=== PATIENT | male | born 1935 | race Caucasian/White ===

== ENCOUNTER 2016-11-25 06:38 | Inpatient (IN) | payer OTHER, MEDICARE ==
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
--- NOTE | 2016-11-25 07:50 | XR ---
EXAMINATION TYPE: XR chest 2V DATE OF EXAM: 11/25/2016 HISTORY: Chest Pain. REFERENCE: Previous study dated 04/01/2015. FINDINGS: The lungs are clear. Pleural space are clear. Heart size is upper limits of normal. IMPRESSION: BORDERLINE CARDIOMEGALY.
[2016-11-25 07:59] LABS: Basophils % (A) 0 %; CH 33.7; CHCM 35.6; Eosinophils % (A) 0 %; HCT 46.6 % (39.0-53.0); HDW 3.07; HGB 15.8 gm/dL (13.0-17.5); Luc # (Auto) 0.08; Luc % (Auto) 1; Lymphocytes # (A) 0.6 k/uL (1.0-4.8); Lymphocytes % (A) 8 %; MCH 32.2 pg (25.0-35.0); MCHC 33.8 g/dL (31.0-37.0); MCV 95.1 fL (80.0-100.0); Mean Platelet Volume 7.8; Monocytes # (A) 0.3 k/uL (0-1.0); Monocytes % (A) 4 %; Neutrophils # (A) 6.3 k/uL (1.3-7.7); Neutrophils % (A) 86 %; RDW 14.6 % (11.5-15.5); WBC 7.3 k/uL (3.8-10.6); WBC (Perox) 6.76
[2016-11-25 08:14] LABS: ALT 44 U/L (21-72); AST 30 U/L (17-59); Alkaline Phosphatase 58 U/L (38-126); Anion Gap 9 mmol/L; Blood Urea Nitrogen 22 mg/dL (9-20); Calcium 9.4 mg/dL (8.4-10.2); Carbon Dioxide 29 mmol/L (22-30); Chloride 106 mmol/L (98-107); Glucose 153 mg/dL (74-99); Magnesium 1.7 mg/dL (1.6-2.3); Non-African American GFR(MDRD) >60 (>60 ml/min/1.73 sqM); Potassium 4.8 mmol/L (3.5-5.1); Sodium 144 mmol/L (137-145); Total Bilirubin 0.8 mg/dL (0.2-1.3); Total Protein 7.2 g/dL (6.3-8.2)
[2016-11-25 08:23] LABS: Creatine Kinase 65 U/L (55-170)
[2016-11-25 08:26] LABS: INR 1.2 (<1.2); Partial Thromboplastin Time 24.5 sec (22.0-30.0); Prothrombin Time 11.6 sec (9.0-12.0)
[2016-11-25 08:36] LABS: Creatine Kinase MB 1.3 ng/mL (0.0-2.4); Troponin I <0.012 ng/mL (0.000-0.034)
[2016-11-25] MEDS ORDERED: NITROGLYCERIN SL TABS 0.4 MG TAB SUBLINGUAL PRN (09:29)
[2016-11-25] MEDS ORDERED: HEPARIN SODIUM,PORCINE 5,000 UNIT/ML 1 ML VIAL IV ONE (09:29)
[2016-11-25] MEDS ORDERED: HEPARIN SODIUM,PORCINE/D5W PMX 25,000 UNIT in DEXTROSE/WATER 1 500ML.BAG IV SCH (09:30)
[2016-11-25] MEDS: SODIUM CHLORIDE 0.9% 1,000 ML IV SCH (10:04)
[2016-11-25] MEDS: PANTOPRAZOLE 40 MG/10 ML VIAL IVP SCH (11:57)
[2016-11-25] MEDS: HYDROcodone/APAP 7.5-325MG 1 EACH TAB PO PRN (11:58)
[2016-11-25 13:07] LABS: Creatine Kinase 51 U/L (55-170)
[2016-11-25 13:17] LABS: Creatine Kinase MB 1.2 ng/mL (0.0-2.4); Troponin I <0.012 ng/mL (0.000-0.034)
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
[2016-11-25] MEDS: NITROGLYCERIN OINT 1 INCH/GM PACKET TOPICAL SCH ×2 (14:13→19:07)
[2016-11-25] MEDS ORDERED: HEPARIN SODIUM,PORCINE 5,000 UNIT/ML 1 ML VIAL IV STA (19:40)
[2016-11-25] MEDS: ATORVASTATIN 10 MG TAB PO SCH (20:42)
[2016-11-25 20:45] LABS: Creatine Kinase 48 U/L (55-170)
[2016-11-25 20:59] LABS: Creatine Kinase MB 0.7 ng/mL (0.0-2.4); Troponin I <0.012 ng/mL (0.000-0.034)
[2016-11-25] MEDS ORDERED: ASPIRIN 325 MG TAB PO SCH (21:00)
[2016-11-26] MEDS: NITROGLYCERIN OINT 1 INCH/GM PACKET TOPICAL SCH ×2 (00:12→05:48)
[2016-11-26] MEDS: HYDROcodone/APAP 7.5-325MG 1 EACH TAB PO PRN (03:59)
[2016-11-26 07:47] LABS: Cholesterol 104 mg/dL (<200); HDL Cholesterol 42 mg/dL (40-60)
[2016-11-26] MEDS ORDERED: ASPIRIN 325 MG TAB PO SCH (09:00)
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
[2016-11-26] MEDS: PANTOPRAZOLE 40 MG/10 ML VIAL IVP SCH (10:13)
[2016-11-26] MEDS: ALLOPURINOL 300 MG TAB PO SCH (10:14)
[2016-11-26] MEDS: NIACIN TR 250 MG CAPSULE.ER PO SCH (10:14)
[2016-11-26] MEDS: VALSARTAN 160 MG TAB PO SCH (10:14)
--- NOTE | 2016-11-26 12:18 | US ---
EXAMINATION TYPE: US abdomen complete DATE OF EXAM: 11/26/2016 COMPARISON: NONE CLINICAL HISTORY: epigastric pain. Epigastric, RUQ pain EXAM MEASUREMENTS: Liver Length: 16.1 cm Gallbladder Wall: 0.5 cm CBD: 0.5 cm Spleen: 13.8 cm Right Kidney: 12.2 x 6.1 x 5.4 cm Left Kidney: 12.2 x 5.4 x 4.7 cm *Technical limitations due to large amount of overlying bowel content Pancreas: Obscured by bowel gas Liver: best visualized intercostally Gallbladder: echogenic material , possible pericholecystic fluid noted Evidence for sonographic Rodriguez's sign: yes CBD: limited evaluation Spleen: Slightly enlarged at 13.8 cm on long axis Right Kidney: cystic area upper pole = 3.4 x 3.6 x 3.4cm felt to reflect simple cyst. Left Kidney: anechoic area lower pole = 2.0 x 2.0 x 1.5cm not completely anechoic favoring simple cyst. Upper IVC: Obscured by overlying bowel gas Abd Aorta: Obscured by overlying bowel gas The visualized liver is heterogeneously hyperechoic. No worrisome intrahepatic ductal dilatation is s een. Evaluation for focal masses is suboptimal due to the heterogeneity. The intrahepatic portion of the IVC and proximal abdominal aorta are obscured by overlying bowel gas. Dependent mobile nonshadowi ng density in gallbladder could reflect small stones or gallbladder sludge. There is suggestion of pe richolecystic fluid. Visualized portion of common bile duct is within normal limits. The pancreas is suboptimally evaluated as is obscured by overlying bowel gas. The spleen is slightly enlarged. Kid neys are symmetric and free of hydronephrosis. IMPRESSION: 1. Small stones or gallbladder sludge with positive sonographic Rodriguez's sign and trace pericholecyst ic fluid, acute cholecystitis cannot be excluded in the patient's symptoms of right upper quadrant pa in. Consider further investigation with HIDA scan or surgical exploration. 2. Favor simple appearing cysts in both kidneys, although this should be confirmed with multi phase r enal protocol CT or MRI. 3. Heterogeneous liver could reflect fatty infiltration or underlying hepatocellular disease. Mild sp lenomegaly noted. Clinical correlation advised.
[2016-11-26] MEDS: SODIUM CHLORIDE 0.9% 1,000 ML IV SCH ×3 (13:07→19:08)
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
[2016-11-26] MEDS: metroNIDAZOLE-NS PMX 500 MG in SALINE 1 100ML.BAG IVPB SCH ×2 (15:24→23:27)
[2016-11-26] MEDS: LEVOFLOXACIN 500MG-D5W PMX 500 MG in DEXTROSE/WATER 1 100ML.BAG IVPB SCH (18:02)
--- NOTE | 2016-11-26 18:19 | ECHOF ---
Referral Reason:chest pain MEASUREMENTS -------- HEIGHT: 172.7 cm WEIGHT: 83.0 kg BP: 168/91 IVSd: 1.1 cm (0.6 - 1.1) LVIDd: 3.9 cm (3.9 - 5.3) LVPWd: 0.8 cm (0.6 - 1.1) IVSs: 1.4 cm LVIDs: 2.1 cm LVPWs: 1.4 cm Ao Diam: 3.0 cm (2.0 - 3.7) AV Cusp: 1.4 cm (1.5 - 2.6) LA Diam: 3.5 cm (2.7 - 3.8) MV EXCURSION: 11.106 mm (> 18.000) MV EF SLOPE: 86 mm/s (70 - 150) EPSS: 0.5 cm MV E Len: 0.89 m/s MV DecT: 148 ms MV A Len: 1.10 m/s MV E/A Ratio: 0.81 RAP: 5.00 mmHg RVSP: 9.64 mmHg FINDINGS -------- Sinus rhythm. This was a technically good study. Left ventricular wall thickness is normal. Overall left ventricular systolic function is normal with, an EF between 55 - 60 %. The right ventricle is normal in size and function. The left atrium is normal in size. The right atrium is normal in size. The aortic valve is trileaflet, and appears structurally normal. No aortic stenosis or regurgitation. The mitral valve leaflets are mildly thickened. There is trace mitral regurgitation. Trace tricuspid regurgitation present. The right ventricular systolic pressure, as measured by Doppler, is 9.64mmHg. Pulmonic valve appears structurally normal. The aortic root size is normal. The pericardium is normal. CONCLUSIONS -------- 1. Sinus rhythm. 2. There is trace mitral regurgitation. 3. Trace tricuspid regurgitation present. 4. The right ventricular systolic pressure, as measured by Doppler, is 9.64mmHg. 5. Pulmonic valve appears structurally normal. 6. The aortic root size is normal. 7. The pericardium is normal. 8. This was a technically good study. 9. Left ventricular wall thickness is normal. 10. Overall left ventricular systolic function is normal with, an EF between 55 - 60 %. 11. The right ventricle is normal in size and function. 12. The left atrium is normal in size. 13. The right atrium is normal in size. 14. The aortic valve is trileaflet, and appears structurally normal. No aortic stenosis or regurgitation. 15. The mitral valve leaflets are mildly thickened. COMPRESSOR MECHANIC: Arabella Escobar RDCS
[2016-11-26] MEDS: ATORVASTATIN 10 MG TAB PO SCH (19:26)
[2016-11-26 19:39] LABS: Appearance,Urine Clear (Clear); Bilirubin,Urine Negative (Negative); Glucose,Urine (UA) Negative (Negative); Ketones,Urine 1+ (Negative); Leukocyte Esterase,Urine Negative (Negative); Mucus,Urine Rare /hpf; Nitrite,Urine Negative (Negative); PH, Urine 6.5 (5.0-8.0); Particle Count 2284; Protein,Urine 1+ (Negative); RBC,Urine 3 /hpf (0-5); Specific Gravity,Urine 1.023 (1.001-1.035); UA Billing (MACRO vs. MICRO) MICRO; Urobilinogen,Urine <2.0 mg/dL (<2.0); WBC,Urine 3 /hpf (0-5)
[2016-11-27] MEDS: SODIUM CHLORIDE 0.9% 1,000 ML IV SCH ×3 (00:52→19:35)
[2016-11-27] MEDS: HYDROcodone/APAP 7.5-325MG 1 EACH TAB PO PRN (01:27)
[2016-11-27] MEDS: metroNIDAZOLE-NS PMX 500 MG in SALINE 1 100ML.BAG IVPB SCH ×3 (05:39→19:35)
[2016-11-27 07:19] LABS: Basophils % (A) 0 %; CH 31.7; Eosinophils % (A) 0 %; HDW 3.02; HGB 15.3 gm/dL (13.0-17.5); Luc # (Auto) 0.27; Luc % (Auto) 2; Lymphocytes # (A) 0.7 k/uL (1.0-4.8); Lymphocytes % (A) 5 %; MCH 32.1 pg (25.0-35.0); MCHC 33.2 g/dL (31.0-37.0); MCV 96.6 fL (80.0-100.0); Mean Platelet Volume 7.3; Monocytes # (A) 1.1 k/uL (0-1.0); Monocytes % (A) 7 %; Neutrophils # (A) 13.3 k/uL (1.3-7.7); Neutrophils % (A) 86 %; RBC 4.77 m/uL (4.30-5.90); RDW 13.5 % (11.5-15.5); WBC 15.4 k/uL (3.8-10.6); WBC (Perox) 15.86
[2016-11-27 07:22] LABS: INR 1.7 (<1.2); Prothrombin Time 16.5 sec (9.0-12.0)
[2016-11-27 07:36] LABS: Anion Gap 10 mmol/L; Calcium 8.4 mg/dL (8.4-10.2); Carbon Dioxide 20 mmol/L (22-30); Chloride 106 mmol/L (98-107); Glucose 98 mg/dL (74-99); Non-African American GFR(MDRD) >60 (>60 ml/min/1.73 sqM); Sodium 136 mmol/L (137-145); Total Protein 5.8 g/dL (6.3-8.2)
[2016-11-27 07:39] LABS: Potassium 4.2 mmol/L (3.5-5.1)
[2016-11-27 07:40] LABS: ALT 28 U/L (21-72); AST 25 U/L (17-59); Alkaline Phosphatase 57 U/L (38-126); Blood Urea Nitrogen 15 mg/dL (9-20)
[2016-11-27] MEDS: NIACIN TR 250 MG CAPSULE.ER PO SCH (08:36)
[2016-11-27] MEDS: ALLOPURINOL 300 MG TAB PO SCH (08:36)
[2016-11-27] MEDS: VALSARTAN 160 MG TAB PO SCH (08:36)
[2016-11-27] MEDS: PANTOPRAZOLE 40 MG/10 ML VIAL IVP SCH (08:38)
[2016-11-27 09:45] LABS: INR 1.6 (<1.2); Partial Thromboplastin Time 31.1 sec (22.0-30.0); Prothrombin Time 15.1 sec (9.0-12.0)
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
--- NOTE | 2016-11-27 11:09 | P.PN ---
Subjective 81-year-old being seen resting in bed. Patient states he continues to have some epigastric discomfort. Patient is scheduled today for a lap cholecystectomy per Dr. hatch. Dr. hatch is aware that the INR is 1.7 this morning total bili 2. Patient has been seen this morning by GI service. Recommendations reviewed noted and appreciated. Recommending proceeding with a lap scopic cholecystectomy. Repeating the CMP in the morning. If the liver function tests worsen they will reevaluated for possible ERCP Objective - Vital Signs Vital signs: Vital Signs Temp 98.3 F 11/27/16 07:00 Pulse 80 11/27/16 07:00 Resp 16 11/27/16 07:00 BP 133/71 11/27/16 07:00 Pulse Ox 95 11/27/16 07:00 Intake & Output 11/26/16 11/27/16 11/27/16 18:59 06:59 18:59 Intake Total 660 Output Total 500 Balance 160 Intake: Intake, IV Titration 660 Amount Sodium Chloride 0.9% 1, 660 000 ml @ 110 mls/hr IV . Q9H6M [facility] Rx#:[id number] Oral 0 Output: Urine 500 Other: Voiding Method Toilet # Voids 1 - Exam Physical exam 81-year-old male resting in bed denying chest pain shortness of breath dizziness or lightheadedness states continues to have epigastric discomfort pain medication effective for pain control Heart S1-S2 audible and regular denying chest pain Lungs essentially clear with adequate air movement Abdomen tenderness at the epigastric area bowel tones present nondistended no palpable organomegaly no reports of nausea no vomiting urinating no difficulty extremities no edema noted - Labs CBC & Chem 7: 11/27/16 06:44 11/27/16 06:44 Labs: Abnormal Lab Results - Last 24 Hours (Table) 11/26/16 11/27/16 11/27/16 Range/Units 18:50 06:44 06:44 WBC 15.4 H (3.8-10.6) k/uL Plt Count 112 L (150-450) k/uL Neutrophils # 13.3 H (1.3-7.7) k/uL Lymphocytes # 0.7 L (1.0-4.8) k/uL Monocytes # 1.1 H (0-1.0) k/uL PT 16.5 H (9.0-12.0) sec INR 1.7 H (<1.2) Sodium (137-145) mmol/L Carbon Dioxide (22-30) mmol/L Total Bilirubin (0.2-1.3) mg/dL Total Protein (6.3-8.2) g/dL Albumin (3.5-5.0) g/dL Urine Protein 1+ H (Negative) Urine Ketones 1+ H (Negative) Urine Mucus Rare H (None) /hpf 11/27/16 Range/Units 06:44 WBC (3.8-10.6) k/uL Plt Count (150-450) k/uL Neutrophils # (1.3-7.7) k/uL Lymphocytes # (1.0-4.8) k/uL Monocytes # (0-1.0) k/uL PT (9.0-12.0) sec INR (<1.2) Sodium 136 L (137-145) mmol/L Carbon Dioxide 20 L (22-30) mmol/L Total Bilirubin 2.0 H (0.2-1.3) mg/dL Total Protein 5.8 L (6.3-8.2) g/dL Albumin 3.1 L (3.5-5.0) g/dL Urine Protein (Negative) Urine Ketones (Negative) Urine Mucus (None) /hpf Microbiology - Last 24 Hours (Table) 11/26/16 18:50 Urine Culture - Preliminary Urine,Voided Assessment and Plan Plan: Impression Present on admission epigastric pain radiating to umbilical area and right upper quadrant suspect due to acute cholecystitis Known coronary artery disease with prior coronary stenting per heart catheterization done March 2015 to the RCA and the OM patent Ultrasound abdomen suggest acute cholecystitis with small gallstones with gallbladder sludge with positive Rodriguez sign Hyperlipidemia Hypertension essential History of osteoarthritis 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 [place] Field nurse practitioner acting as scribe for signing physician.
--- NOTE | 2016-11-27 11:54 | P.PN ---
Subjective Principal diagnosis: Epigastric pain and tenderness and possible cholecystitis This is 81-year-old gentleman was admitted with complaints of pain in the epigastric area. On physical examination, Yesterday, patient had tenderness in that area and cholecystitis was suspected and an ultrasound examination of the Abdomen is consistent with possible cholecystitis. His white count has come up today to 15,000. The patient is having still abdominal pain that increases on deep breathing and also tenderness in the right upper quadrant. Is not having any chest pain or dyspnea. He patient does have history of ischemic heart disease and previous stent placement of the RCA and also circumflex. Cardiac catheterization March 2015 showed patent stents. His LV function is preserved. His clinical presentation is consistent with cholecystitis or acute abdominal issue. His symptoms are not suggestive of angina. From a cardiac standpoint, he seems to be stable. He is cleared to have surgery with the above average risk. Objective - Vital Signs Vital signs: Vital Signs Temp 98.3 F 11/27/16 07:00 Pulse 80 11/27/16 07:00 Resp 16 11/27/16 07:00 BP 133/71 11/27/16 07:00 Pulse Ox 95 11/27/16 07:00 Intake & Output 11/26/16 11/27/16 11/27/16 18:59 06:59 18:59 Intake Total 660 Output Total 500 Balance 160 Intake: Intake, IV Titration 660 Amount Sodium Chloride 0.9% 1, 660 000 ml @ 110 mls/hr IV . Q9H6M [facility] Rx#:[id number] Oral 0 Output: Urine 500 Other: Voiding Method Toilet # Voids 1 - Exam GENERAL EXAM: Patient is alert and oriented and doesn't appear to be in any acute distress HEENT: Normocephalic. Normal reaction of pupils, equal size, normal range of extraocular motion. No erythema or exudates in the throat. NECK: No masses, no nuchal rigidity. CHEST: No chest wall deformity. LUNGS: Equal air entry with no crackles or wheeze. HEART: S1 and S2 normal with no audible mumurs or gallops. Regular rhythm, femorals equal on both sides.. ABDOMEN: Tenderness is noted in the right upper quadrant. No rigidity or guarding SKIN: No rashes CENTRAL NERVOUS SYSTEM: No focal deficits. EXTREMITIES: No cyanosis, clubbing or edema. - Labs CBC & Chem 7: 11/27/16 06:44 11/27/16 06:44 Labs: Abnormal Lab Results - Last 24 Hours (Table) 11/26/16 11/27/16 11/27/16 Range/Units 18:50 06:44 06:44 WBC 15.4 H (3.8-10.6) k/uL Plt Count 112 L (150-450) k/uL Neutrophils # 13.3 H (1.3-7.7) k/uL Lymphocytes # 0.7 L (1.0-4.8) k/uL Monocytes # 1.1 H (0-1.0) k/uL PT 16.5 H (9.0-12.0) sec INR 1.7 H (<1.2) APTT (22.0-30.0) sec Sodium (137-145) mmol/L Carbon Dioxide (22-30) mmol/L Total Bilirubin (0.2-1.3) mg/dL Total Protein (6.3-8.2) g/dL Albumin (3.5-5.0) g/dL Urine Protein 1+ H (Negative) Urine Ketones 1+ H (Negative) Urine Mucus Rare H (None) /hpf 11/27/16 11/27/16 Range/Units 06:44 09:19 WBC (3.8-10.6) k/uL Plt Count (150-450) k/uL Neutrophils # (1.3-7.7) k/uL Lymphocytes # (1.0-4.8) k/uL Monocytes # (0-1.0) k/uL PT 15.1 H (9.0-12.0) sec INR 1.6 H (<1.2) APTT 31.1 H (22.0-30.0) sec Sodium 136 L (137-145) mmol/L Carbon Dioxide 20 L (22-30) mmol/L Total Bilirubin 2.0 H (0.2-1.3) mg/dL Total Protein 5.8 L (6.3-8.2) g/dL Albumin 3.1 L (3.5-5.0) g/dL Urine Protein (Negative) Urine Ketones (Negative) Urine Mucus (None) /hpf Microbiology - Last 24 Hours (Table) 11/26/16 18:50 Urine Culture - Preliminary Urine,Voided Assessment and Plan (1) Cholecystitis Status: Acute (2) Abdominal pain Status: Acute (3) CAD (coronary artery disease) Status: Acute Plan: His clinical is consistent with acute cholecystitis or acute abdominal tissue. The pains are noncardiac in nature. Patient last cardiac catheterization in March 2015 showed stable disease. Patient is being cleared for surgery with the above average risk
--- NOTE | 2016-11-27 12:41 | P.PN ---
Subjective Progress being dictated for Dr. Salgado. History of Present Illness Very pleasant 72-year-old gentleman with history of known coronary artery disease in the CABG in the past was sent in from [facility] for chest pain which started earlier today morning at 3 AM epigastric mostly burning sensation nonradiating about 9 x 10 in severity now to bed in severity constant not relieved by nitroglycerin, he did have some nausea denied any lightheadedness diaphoresis shortness of breath associated with that patient denied any pleurisy. Patient denied any fever chills. Patient does have some nonspecific ST-T wave changes in anterior leads probably from his previous myocardial infarction. Patient is admitted for rule out acute coronary syndromes and cardiology will evaluate the patient. 11/26/2016 complains of midsternal epigastric pain radiating to right upper quadrant and umbilical area . T-max 100.7. Normal transaminases and alkaline phosphatase. Ultrasound reporting gallbladder sludge, small stones, trace Laura- Cholecystic fluid, possible acute cholecystitis, fatty liver, spleen. Surgery consulted. Evaluated by cardiology with no further workup recommended at this time. Echo reporting normal LV function, EF 55-60%, cardiac enzymes negative. Chest x-ray nonacute. Denies chest pain, palpitations or increased shortness of breath. Objective - Vital Signs Vital signs: Vital Signs Temp 98.4 F 11/26/16 07:46 Pulse 69 11/26/16 07:46 Resp 18 11/26/16 07:46 BP 102/61 11/26/16 07:46 Pulse Ox 95 11/26/16 07:46 Intake & Output 11/25/16 11/26/16 11/26/16 18:59 06:59 18:59 Intake Total 190.023 Balance 190.023 Weight 83.1 kg Intake: Intake, IV Titration 190.023 Amount Heparin Sodium,Porcine/ 190.023 D5w Pmx 25,000 unit In Dextrose/Water 1 500ml. bag @ 12 UNITS/KG/HR 19. 59 mls/hr IV .Q24H [facility] Rx #:[id number] Other: Voiding Method Toilet Toilet - Exam GENERAL: Patient is alert and oriented x3, no acute distress. Well developed, well nourished. HEENT: Pupils are round and equally reacting to light. EOMI. No scleral icterus. No conjunctival pallor. Normocephalic, atraumatic. No pharyngeal erythema. No thyromegaly. CARDIOVASCULAR: S1 and S2 present. No murmurs, rubs, or gallops. PULMONARY: Chest is clear to auscultation, no wheezing or crackles. ABDOMEN: Soft, mild mid epigastric and right upper quadrant tenderness, nondistended, normoactive bowel sounds. No palpable organomegaly. No guarding, no rigidity MUSCULOSKELETAL: No joint swelling or deformity. EXTREMITIES: No cyanosis, clubbing, or pedal edema. NEUROLOGICAL: Gross neurological examination did not reveal any focal deficits. SKIN: No rashes. - Labs CBC & Chem 7: 11/27/16 06:44 11/27/16 06:44 Labs: Abnormal Lab Results - Last 24 Hours (Table) 11/25/16 11/25/16 11/25/16 Range/Units 12:22 16:18 19:40 APTT 40.8 H (22.0-30.0) sec Total Creatine Kinase 51 L 48 L (55-170) U/L 11/26/16 11/26/16 Range/Units 00:52 06:33 APTT 58.4 H 54.1 H (22.0-30.0) sec Total Creatine Kinase (55-170) U/L Assessment and Plan Plan: #1 chest pain/epigastric abdominal pain, suspect acute cholecystitis, acute cholelithiasis,hyperbilirubinemia #2 coronary artery disease: Continue with his home medications. 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 Plan: Continue on current medication regime ,monitoring and symptomatic treatment. Maintain IV fluid hydration .Surgery consulted for abnormal ultrasound. Maintain nothing by mouth status. Antibiotics of Flagyl and Levaquin initiated. Blood cultures, UA ordered. Further recommendations to follow. The impression and plan of care has been dictated as directed. : I performed a H&P examination of this patient and discussed the same with the dictator. I agree with the dictator's note. Any additional findings/opinions/ etc. will be noted.
--- NOTE | 2016-11-27 12:56 | P.PN ---
Subjective 81-year-old gentleman was admitted for chest pain and epigastric abdominal pain and patient is found to have cholecystitis and patient does have menses and that is positive. And patient will undergo cholecystectomy today and patient is on metronidazole and levofloxacin for acute cholecystitis. Patient does have elevated INR theology of elevated INR is not clear at this time probably nutritional deficiency of vitamin K. Patient can use to have right upper quadrant abdominal pain, denied any nausea denied any vomiting denied any chest pain denied any dysuria or new focal weakness. Objective - Vital Signs Vital signs: Vital Signs Temp 98.3 F 11/27/16 07:00 Pulse 80 11/27/16 07:00 Resp 16 11/27/16 07:00 BP 133/71 11/27/16 07:00 Pulse Ox 95 11/27/16 07:00 Intake & Output 11/26/16 11/27/16 11/27/16 18:59 06:59 18:59 Intake Total 660 Output Total 500 Balance 160 Intake: Intake, IV Titration 660 Amount Sodium Chloride 0.9% 1, 660 000 ml @ 110 mls/hr IV . Q9H6M [facility] Rx#:[id number] Oral 0 Output: Urine 500 Other: Voiding Method Toilet # Voids 1 - Exam PHYSICAL EXAMINATION: GENERAL: The patient is alert and oriented x3, not in any acute distress. Well developed, well nourished. HEENT: Pupils are round and equally reacting to light. EOMI. No scleral icterus. No conjunctival pallor. Normocephalic, atraumatic. No pharyngeal erythema. No thyromegaly. CARDIOVASCULAR: S1 and S2 present. No murmurs, rubs, or gallops. PULMONARY: Chest is clear to auscultation, no wheezing or crackles. ABDOMEN: Right upper quadrant tenderness was appreciated and patient does have positive Rodriguez's sign and patient does not have any rebound or rigidity. Patient has good bowel sounds. MUSCULOSKELETAL: No joint swelling or deformity. EXTREMITIES: No cyanosis, clubbing, or pedal edema. NEUROLOGICAL: Gross neurological examination did not reveal any focal deficits. SKIN: No rashes. - Labs CBC & Chem 7: 11/27/16 06:44 11/27/16 06:44 Labs: Abnormal Lab Results - Last 24 Hours (Table) 11/26/16 11/27/16 11/27/16 Range/Units 18:50 06:44 06:44 WBC 15.4 H (3.8-10.6) k/uL Plt Count 112 L (150-450) k/uL Neutrophils # 13.3 H (1.3-7.7) k/uL Lymphocytes # 0.7 L (1.0-4.8) k/uL Monocytes # 1.1 H (0-1.0) k/uL PT 16.5 H (9.0-12.0) sec INR 1.7 H (<1.2) APTT (22.0-30.0) sec Sodium (137-145) mmol/L Carbon Dioxide (22-30) mmol/L Total Bilirubin (0.2-1.3) mg/dL Total Protein (6.3-8.2) g/dL Albumin (3.5-5.0) g/dL Urine Protein 1+ H (Negative) Urine Ketones 1+ H (Negative) Urine Mucus Rare H (None) /hpf 11/27/16 11/27/16 Range/Units 06:44 09:19 WBC (3.8-10.6) k/uL Plt Count (150-450) k/uL Neutrophils # (1.3-7.7) k/uL Lymphocytes # (1.0-4.8) k/uL Monocytes # (0-1.0) k/uL PT 15.1 H (9.0-12.0) sec INR 1.6 H (<1.2) APTT 31.1 H (22.0-30.0) sec Sodium 136 L (137-145) mmol/L Carbon Dioxide 20 L (22-30) mmol/L Total Bilirubin 2.0 H (0.2-1.3) mg/dL Total Protein 5.8 L (6.3-8.2) g/dL Albumin 3.1 L (3.5-5.0) g/dL Urine Protein (Negative) Urine Ketones (Negative) Urine Mucus (None) /hpf Microbiology - Last 24 Hours (Table) 11/26/16 18:50 Urine Culture - Preliminary Urine,Voided Assessment and Plan Plan: #1 acute cholecystitis: Patient will undergo cholecystectomy today and patient is on broad-spectrum antibodies at this time #2 coronary artery disease: Continue with his home medications. 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 #7 elevated INR: Secondary to nutritional deficiency of vitamin K rather liver disease per se. And elevated bilirubin is expected to improve after cholecystectomy.
[2016-11-27] MEDS ORDERED: IV FLUID CONTINUATION 1,000 ML IV ONE ×2 (14:51)
[2016-11-27] MEDS ORDERED: DEXAMETHASONE SOD PHOSPHATE 10 MG/ML 1 ML VIAL IV ONE (15:06)
[2016-11-27] MEDS ORDERED: ONDANSETRON 4 MG/2 ML VIAL IVP ONE (15:07)
[2016-11-27] MEDS ORDERED: SODIUM CHLORIDE 0.9% 1,000 ML IV ONE ×5 (15:14→18:00)
--- NOTE | 2016-11-27 15:17 | P.HPADDEND ---
H&P Addendum H&P Addendum Date: 11/27/16 The patient is a 81-year-old gentleman who presented with epigastric pain initially thought to be cardiac in origin for which she was placed him on heparin drip. On further workup revealed that it was epigastric related to his gallbladder ultrasound revealed acute cholecystitis. He been having this pain for approximately 24-48 hours prior to presentation. On examination he was tender in the right upper quadrant with stable vitals , no obvious icterus. No guarding or rebound no other masses were palpable. Ultrasound did confirm acute cholecystitis Assessment and plan. Patient is significant cardiac history and is overall a very high risk for this procedure. Detailed discussion and informed consent has been obtained explaining the possibility of doing an open procedure. The patient has agreed and is willing to proceed.
[2016-11-27] MEDS ORDERED: ROCURONIUM BROMIDE 10 MG/ML 10 ML VIAL IV ONE (15:23)
[2016-11-27] MEDS ORDERED: HYDROmorphone (PF) 1 MG/ML ONE (15:23)
[2016-11-27] MEDS ORDERED: fentaNYL (PF) 50 MCG/ML 2 ML AMP ONE (15:23)
[2016-11-27] MEDS ORDERED: PHENYLEPHRINE-0.9% NACL SYG 1 MG/10 ML SYRINGE ONE (15:23)
[2016-11-27] MEDS ORDERED: MIDAZOLAM 2 MG/2 ML VIAL ONE (15:23)
[2016-11-27] MEDS ORDERED: PROPOFOL 10 MG/ML 20 ML VIAL IV ONE (15:23)
[2016-11-27] MEDS ORDERED: SUCCINYLCHOLINE CHLORIDE 100 MG/5 ML SYR IV ONE (15:23)
[2016-11-27] MEDS ORDERED: LIDOCAINE 1% INJ 10MG/ML (20 ML MDV) ONE (15:23)
[2016-11-27] MEDS ORDERED: BUPIVACAINE-EPI 0.5%-1:200,000 10 ML VIAL SQ ONE ×2 (16:07)
[2016-11-27] MEDS ORDERED: HYDROmorphone 1 MG/ML 1 ML SYRINGE IVP PRN (17:09)
--- NOTE | 2016-11-27 17:21 | P.OP ---
Date of Procedure: 11/27/16 Preoperative Diagnosis: Acute cholecystitis Postoperative Diagnosis: Acute gangrenous cholecystitis Procedure(s) Performed: Laparoscopic cholecystectomy Implants: Anesthesia: FELA Surgeon: Angeles Bernardo Estimated Blood Loss (ml): 200 Pathology: other Condition: stable Disposition: PACU Indications for Procedure: Operative Findings: Gangrenous cholecystitis extensive adhesions. Description of Procedure: The patient is a 81-year-old male who presented with epigastric and upper abdominal pain which localized in the epigastrium with an ultrasound that confirmed the presence of acute cholecystitis The risks benefits and possible complications of the procedure were discussed in detail and informed consent was obtained. Patient was identified in the preop operating holding area questions were answered and he was taken back to the operating room where she was placed in the supine position. Hhe was given general anesthesia with endotracheal intubation followed by the placement of an orogastric tube and an appropriate timeout was called the indication procedure ALLERGIES medications from her prophylaxis were all discussed. Abdomen is prepped and draped in the usual sterile surgical fashion spraumbilical region was infiltrated with quarter percent with local anesthesia and incision was made with 11 blade and Veress needle was introduced and abdomen was insufflated to 15 mmHg. Once that was done a 10 mm epigastric port and two 5 mm right upper quadrant ports were placed.the gallbladder was retracted cephalad and superiorly.the omentum and completely covered up the gallbladder it had to be dissected off with her significant amount of inflammatory adhesions which had to be medical history dissected. The gallbladder was very difficult to grab and shredding when we grabbed. We did use the ovarian needle to drain significant amount of the hydrops thick fluid within the gallbladder. The fundus was retracted so as to be able to trace the infundibulum month and omentum down to the cystic duct. And dissection was done with the help of electrocautery and I decided on releasing some of the peritoneal attachment. Then a blunt dissection was done and the site of the fundus and this was traced down onto the site of callus lymph node. On wound after meticulous dissection and completely skeletonizing the cystic duct was clipped proximally and distally and transected sharply. The artery had not been appropriately identified. On the inflammatory adhesions and the peritoneal division wasn't started to dissected from the infundibulum up towards the body and during that a large arterial vessel was next and there was significant amount of bleeding. This was controlled promptly with the help of clips after which the abdomen was thoroughly irrigated and sucked dry. As we continued to take the gallbladder off the gallbladder fossa was noted that the posterior wall was densely adherent with the liver and there was no good dissection plane. Because of that had a significant amount of intrusion into the surface of the liver. Decision was made to incise the gallbladder wall and leave behind approximately 2-3 cm area in the upper part which was very densely adherent and I was worried that any further dissection would go into the liver parenchyma and cause significant bleeding. This was then dissected thus leaving like inserted 2 x 3 cm area of the fundus. The remaining of the gallbladder with all the stones was removed easily place an Endo Catch bag and removed through the 12 mm port site. The abdomen was thoroughly irrigated and hemostasis was secure with the help of electrocautery. The exposed mucosa of the remnant gallbladder was also burned with the help of electrocautery. FloSeal was used also to help with complete control of hemostasis. the abdomen was thoroughly irrigated and sucked dry. Amy were noted to be in the appropriate position. 19-Amharic drain was brought in through the 10 mm port site and taken out through the right-sided 5 later port site and secured with the help of 3-0 nylon. It was placed in the right subhepatic fossa. It was at this time the procedure was terminated. the 10 mm port was removed and the port site was closed with the help of a Ian Dugan using 0 Vicryl.The Gas was shut off and all the 5 mm ports were removed. The abdomen was thoroughly desufflated. The remaining local anesthesia was infiltrated into the incisions and the incisions were closed with the help of 4-0 Monocryl and Dermabond was applied The patient was extubated and taken to recovery room in stable condition the orogastric tube and Bahena catheter were removed prior to extubation. The patient also received 2 units of FFP during the procedure due to the bleeding. No other complications. He was extubated and taken to recovery room in stable condition..
[2016-11-27] MEDS: LEVOFLOXACIN 500MG-D5W PMX 500 MG in DEXTROSE/WATER 1 100ML.BAG IVPB SCH (19:35)
[2016-11-28] MEDS: metroNIDAZOLE-NS PMX 500 MG in SALINE 1 100ML.BAG IVPB SCH ×2 (00:14→05:52)
[2016-11-28] MEDS: ATORVASTATIN 10 MG TAB PO SCH ×2 (00:14→19:54)
[2016-11-28] MEDS: SODIUM CHLORIDE 0.9% 1,000 ML IV SCH ×2 (03:42→11:31)
[2016-11-28 07:07] LABS: Basophils % (A) 0 %; CH 33.1; CHCM 35.3; Eosinophils % (A) 0 %; HCT 40.9 % (39.0-53.0); HDW 3.12; HGB 13.8 gm/dL (13.0-17.5); Luc # (Auto) 0.16; Luc % (Auto) 1; Lymphocytes # (A) 0.3 k/uL (1.0-4.8); Lymphocytes % (A) 2 %; MCH 31.6 pg (25.0-35.0); MCHC 33.6 g/dL (31.0-37.0); MCV 94.1 fL (80.0-100.0); Mean Platelet Volume 8.3; Monocytes # (A) 0.7 k/uL (0-1.0); Monocytes % (A) 5 %; Neutrophils # (A) 12.1 k/uL (1.3-7.7); Neutrophils % (A) 91 %; RBC 4.35 m/uL (4.30-5.90); RDW 13.8 % (11.5-15.5); WBC 13.2 k/uL (3.8-10.6)
[2016-11-28 07:23] LABS: ALT 36 U/L (21-72); AST 32 U/L (17-59); Alkaline Phosphatase 67 U/L (38-126); Anion Gap 11 mmol/L; Blood Urea Nitrogen 16 mg/dL (9-20); Calcium 8.4 mg/dL (8.4-10.2); Carbon Dioxide 19 mmol/L (22-30); Chloride 108 mmol/L (98-107); Glucose 147 mg/dL (74-99); Non-African American GFR(MDRD) >60 (>60 ml/min/1.73 sqM); Potassium 4.2 mmol/L (3.5-5.1); Sodium 138 mmol/L (137-145); Total Bilirubin 0.9 mg/dL (0.2-1.3); Total Protein 5.9 g/dL (6.3-8.2)
[2016-11-28] MEDS: ALLOPURINOL 300 MG TAB PO SCH (07:52)
[2016-11-28] MEDS: NIACIN TR 250 MG CAPSULE.ER PO SCH (07:52)
[2016-11-28] MEDS: VALSARTAN 160 MG TAB PO SCH (07:52)
[2016-11-28] MEDS: PANTOPRAZOLE 40 MG/10 ML VIAL IVP SCH (07:52)
--- NOTE | 2016-11-28 10:11 | P.PN ---
<Nora Fieldernie Coleman - Last Filed: 11/28/16 10:48> Subjective 81-year-old gentleman being seen on rounds this morning. Patient is postop on November 27 a laparoscopic cholecystectomy for acute gangrenous cholecystitis operative findings showed gangrenous cholecystitis extensive adhesions . Patient states pain medication effective for postop pain. Did note the patient did have a temp of 102.1 at 2:30 yesterday afternoon. Attempt this morning 98.2 The urine culture showed no growth to date, cultures are negative to date. The white count this morning 13.2 down from 15.4 did note the patient is on IV Levaquin and IV Flagyl. Patient has been up ambulating once in the hallway. Patient states not passing gas did tolerate a diet this morning Objective - Vital Signs Vital signs: Vital Signs Temp 98.2 F 11/28/16 07:29 Pulse 74 11/28/16 07:29 Resp 16 11/28/16 07:29 BP 122/73 11/28/16 07:29 Pulse Ox 94 L 11/28/16 07:29 Intake & Output 11/27/16 11/28/16 11/28/16 18:59 06:59 18:59 Intake Total 2815 530 Output Total 400 120 330 Balance 2415 410 -330 Intake: IV 2025 330 0.9 330 Intake, IV Titration 200 Amount Levofloxacin 500Mg-D5w 100 Pmx 500 mg In Dextrose/ Water 1 100ml.bag @ 100 mls/hr IVPB Q24H [facility] Rx#: [id number] metroNIDAZOLE-NS PMX 500 100 mg In Saline 1 100ml.bag @ 100 mls/hr IVPB Q6HR [facility] Rx#:[id number] Blood Product 790 Ffp 24 Cp2d Unit 198 [id number] Ffp 24 Cp2d Unit 197 [id number] Output: Drainage 120 30 Right 120 30 Urine 200 300 Estimated Blood Loss 200 Other: Voiding Method Urinal # Voids 1 - Exam Physical exam 81-year-old gentleman pleasant cooperative oriented 3 sitting up in bed Lungs essentially clear adequate air movement on room air Heart S1-S2 audible and regular denying chest pain Abdomen RODRIGUEZ drain right lower quadrant few hypoactive bowel tones surgical sites no redness at the endoscopic sites nursing reports has been 50cc for the last 12 hours from the RODRIGUEZ drain. Patient states urinating no difficulty. No reports of nausea vomiting did tolerate the diet this morning Extremities no edema noted to the lower extremity - Labs CBC & Chem 7: 11/28/16 06:39 11/28/16 06:39 Labs: Abnormal Lab Results - Last 24 Hours (Table) 11/27/16 11/28/16 11/28/16 Range/Units 15:11 06:39 06:39 WBC 13.2 H (3.8-10.6) k/uL Plt Count 144 L (150-450) k/uL Neutrophils # 12.1 H (1.3-7.7) k/uL Lymphocytes # 0.3 L (1.0-4.8) k/uL Chloride 108 H (98-107) mmol/L Carbon Dioxide 19 L (22-30) mmol/L Glucose 147 H (74-99) mg/dL Total Protein 5.9 L (6.3-8.2) g/dL Albumin 3.1 L (3.5-5.0) g/dL Crossmatch See Detail Microbiology - Last 24 Hours (Table) 11/26/16 18:50 Urine Culture - Final Urine,Voided 11/26/16 14:08 Blood Culture - Preliminary Blood No Growth after 24 hours Assessment and Plan Plan: Impression Present on admission epigastric pain radiating to umbilical area and right upper quadrant suspect due to acute cholecystitis Known coronary artery disease with prior coronary stenting per heart catheterization done March 2015 to the RCA and the OM patent Ultrasound abdomen suggest acute cholecystitis with small gallstones with gallbladder sludge with positive Rodriguez sign Hyperlipidemia Hypertension essential History of osteoarthritis Chronic kidney disease stage II secondary to probable hypertensive nephrosclerosis Mild Hyperbilirubinemia most likely due to cholecystitis November 27 status post laparoscopic cholecystectomy for acute gangrenous cholecystitis Postop febrile Plan If okayed with cardiology would hold aspirin restart as appropriate Continue Levaquin and Flagyl as ordered change to oral route Continue IV fluid for hydration Increase activity Continue postop surgical care DVT and GI prophylaxis Resume home meds as appropriate consider infectious disease consultation for the elevated temperature with recommendations pending Follow-up on pending cultures Discuss with medicine service repeat blood cultures and chest x-ray follow-up The above impression and plan of care have been discussed and directed by signing physician. [place] nurse practitioner acting as scribe for signing physician. <Bibiana Mathew N - Last Filed: 12/04/16 16:48> Objective - Vital Signs Vital signs: Vital Signs Temp 97.4 F L 11/30/16 07:00 Pulse 68 11/30/16 08:46 Resp 16 11/30/16 07:00 BP 139/77 11/30/16 07:00 Pulse Ox 94 L 11/30/16 07:00 - Labs CBC & Chem 7: 11/30/16 06:41 11/30/16 06:41 Labs: Microbiology - Last 24 Hours (Table) 11/28/16 10:24 Blood Culture - Final Blood No Growth after 144 hours 11/28/16 10:35 Blood Culture - Final Blood No Growth after 144 hours Assessment and Plan (1) Acute gangrenous cholecystitis Status: Acute (2) Cholelithiasis Status: Acute
[2016-11-28] MEDS ORDERED: LEVOFLOXACIN 500 MG TAB PO SCH (10:15)
[2016-11-28] MEDS ORDERED: FUROSEMIDE 10 MG/ML 2 ML VIAL IV ONE (10:34)
--- NOTE | 2016-11-28 10:56 | XR ---
EXAMINATION TYPE: XR chest 1V DATE OF EXAM: 11/28/2016 CLINICAL HISTORY: Difficulty breathing after cholecystectomy TECHNIQUE: Single AP portable upright view of the chest is obtained. COMPARISON: Chest x-ray from 3 days earlier. FINDINGS: There is diminished inspiration with new right basilar linear atelectasis. There is stable patchy left basilar atelectasis. No large pleural effusion or pneumothorax is seen bilaterally. Card iac silhouette size is stable and within normal limits. Osseous structures are intact. Overlying EKG wires are noted. IMPRESSION: Persistent patchy left basilar atelectasis with new right basilar linear atelectasis and diminished inspiration noted.
[2016-11-28] MEDS ORDERED: IPRATROPIUM-ALBUTEROL 3 ML NEB INHALATION PRN (11:42)
[2016-11-28] MEDS: IPRATROPIUM-ALBUTEROL 3 ML NEB INHALATION SCH ×3 (12:17→20:02)
--- NOTE | 2016-11-28 12:59 | P.PN ---
Subjective This is a 81-year-old male admitted with complaints of epigastric pain. He was found to have acute cholecystitis and underwent cholecystectomy yesterday with Dr. Bernardo. We are seeing him today for post-operative follow-up. Upon exam he is seen sitting up in bed in a no acute distress. He c/o intermittent shortness of breath, denies chest pain, palpitations or dizziness. Objective - Vital Signs Vital signs: Vital Signs Temp 98.2 F 11/28/16 07:29 Pulse 74 11/28/16 07:29 Resp 16 11/28/16 07:29 BP 122/73 11/28/16 07:29 Pulse Ox 94 L 11/28/16 07:29 Intake & Output 11/27/16 11/28/16 11/28/16 18:59 06:59 18:59 Intake Total 2815 530 Output Total 400 120 330 Balance 2415 410 -330 Intake: IV 2025 330 0.9 330 Intake, IV Titration 200 Amount Levofloxacin 500Mg-D5w 100 Pmx 500 mg In Dextrose/ Water 1 100ml.bag @ 100 mls/hr IVPB Q24H [facility] Rx#: [id number] metroNIDAZOLE-NS PMX 500 100 mg In Saline 1 100ml.bag @ 100 mls/hr IVPB Q6HR [facility] Rx#:[id number] Blood Product 790 Ffp 24 Cp2d Unit 198 [id number] Ffp 24 Cp2d Unit 197 [id number] Output: Drainage 120 30 Right 120 30 Urine 200 300 Estimated Blood Loss 200 Other: Voiding Method Urinal # Voids 1 - Exam GENERAL: Well-appearing, well-nourished and in no acute distress. NECK: Supple with positive JVD. No thyromegaly. LUNGS: Breath sounds bibasilar faint rales. Respiration equal and unlabored. No wheezes or rhonchi. HEART: Regular rate and rhythm without murmurs, rubs or gallops. S1 and S2 heard. EXTREMITIES: Normal range of motion, no edema. No clubbing or cyanosis. Peripheral pulses intact and strong. - Labs CBC & Chem 7: 11/28/16 06:39 11/28/16 06:39 Labs: Abnormal Lab Results - Last 24 Hours (Table) 11/27/16 11/28/16 11/28/16 Range/Units 15:11 06:39 06:39 WBC 13.2 H (3.8-10.6) k/uL Plt Count 144 L (150-450) k/uL Neutrophils # 12.1 H (1.3-7.7) k/uL Lymphocytes # 0.3 L (1.0-4.8) k/uL Chloride 108 H (98-107) mmol/L Carbon Dioxide 19 L (22-30) mmol/L Glucose 147 H (74-99) mg/dL Total Protein 5.9 L (6.3-8.2) g/dL Albumin 3.1 L (3.5-5.0) g/dL Crossmatch See Detail Microbiology - Last 24 Hours (Table) 11/26/16 18:50 Urine Culture - Final Urine,Voided 11/26/16 14:08 Blood Culture - Preliminary Blood No Growth after 24 hours Assessment and Plan Plan: ASSESSMENT 1. Epigastric pain/burning 2. History of coronary artery disease with stenting 3. Hypertension 4. Dyslipidemia PLAN Obtain stat one view chest x-ray. The patient was tolerating oral intake IV fluids should be decreased to KVO. Lasix 20 mg IV push 1 now. Further recommendations will be based upon clinical course. Nurse Practitioner note has been reviewed, I agree with a documented findings and plan of care. Patient was seen and examined.
[2016-11-28 13:14] LABS: Appearance,Urine Clear (Clear); Bilirubin,Urine Negative (Negative); Glucose,Urine (UA) Negative (Negative); Ketones,Urine Negative (Negative); Leukocyte Esterase,Urine Negative (Negative); Nitrite,Urine Negative (Negative); Protein,Urine Negative (Negative); Specific Gravity,Urine 1.004 (1.001-1.035); UA Billing (MACRO vs. MICRO) CHEM; Urobilinogen,Urine <2.0 mg/dL (<2.0)
[2016-11-28] MEDS: CEFEPIME 2 GM in SODIUM CHLORIDE 0.9% 50 ML IVPB SCH ×2 (13:23→19:54)
[2016-11-28] MEDS: metroNIDAZOLE 500 MG TAB PO SCH ×2 (17:40→19:54)
--- NOTE | 2016-11-28 18:00 | P.PN ---
Subjective Progress being dictated for Dr. Salgado. History of Present Illness Very pleasant 72-year-old gentleman with history of known coronary artery disease in the CABG in the past was sent in from [facility] for chest pain which started earlier today morning at 3 AM epigastric mostly burning sensation nonradiating about 9 x 10 in severity now to bed in severity constant not relieved by nitroglycerin, he did have some nausea denied any lightheadedness diaphoresis shortness of breath associated with that patient denied any pleurisy. Patient denied any fever chills. Patient does have some nonspecific ST-T wave changes in anterior leads probably from his previous myocardial infarction. Patient is admitted for rule out acute coronary syndromes and cardiology will evaluate the patient. 11/26/2016 complains of midsternal epigastric pain radiating to right upper quadrant and umbilical area . T-max 100.7. Normal transaminases and alkaline phosphatase. Ultrasound reporting gallbladder sludge, small stones, trace Laura- Cholecystic fluid, possible acute cholecystitis, fatty liver, spleen. Surgery consulted. Evaluated by cardiology with no further workup recommended at this time. Echo reporting normal LV function, EF 55-60%, cardiac enzymes negative. Chest x-ray nonacute. Denies chest pain, palpitations or increased shortness of breath. 11/28/2016 Ambulating in hallway, congested-incentive spirometer up to 1200. Maintained on Flagyl and Levaquin. Remains febrile with T-max of 102.1, WBC 13.2. No bowel movement, not passing flatus. Denies nausea, vomiting. Pain controlled. States not urinating as much. Complains of occasional shortness of breath. Review of systems: CONSTITUTIONAL: Fever, fatigue. HEENT: No recent visual problems or hearing problems. Denied any sore throat. CARDIOVASCULAR: No chest pain, no palpitations, no syncope. PULMONARY: Occasional shortness of breath, no cough, no hemoptysis. GASTROINTESTINAL: No diarrhea, no nausea, no vomiting, no abdominal pain. Bloated .Normoactive bowel sounds. NEUROLOGICAL: No headaches, no weakness, no numbness. HEMATOLOGICAL: Denies any bleeding or petechiae. GENITOURINARY: Denies any burning micturition, frequency, or urgency. MUSCULOSKELETAL/RHEUMATOLOGICAL: Denies any joint pain, swelling, or any muscle pain. ENDOCRINE: Denies any polyuria or polydipsia. PSYCHIATRIC: No anxiety, no depression The rest of the 14 point review of systems is negative Active Medications Hydrocodone Bitart/Acetaminophen ([place] 7.5-325) 1 each PO Q6H PRN PRN Reason: Pain Last Admin: 11/27/16 01:27 Dose: 1 each Albuterol/Ipratropium (Duoneb 0.5 Mg-3 Mg/3 Ml Soln) 3 ml INHALATION RT-QID [facility] Last Admin: 11/28/16 15:58 Dose: Not Given Albuterol/Ipratropium (Duoneb 0.5 Mg-3 Mg/3 Ml Soln) 3 ml INHALATION RT-Q2H PRN PRN Reason: Shortness Of Breath Or Wheezing Allopurinol (Zyloprim) 300 mg PO DAILY [facility] Last Admin: 11/28/16 07:52 Dose: 300 mg Atorvastatin Calcium (Lipitor) 10 mg PO HS [facility] Last Admin: 11/28/16 00:14 Dose: 10 mg Budesonide/Formoterol Fumarate (Symbicort 160-4.5 Mcg Inhaler) 2 puff INHALATION RT-BID [facility] Hydromorphone HCl (Dilaudid) 1 mg IVP Q4HR PRN PRN Reason: Severe Pain Sodium Chloride (Saline 0.9%) 1,000 mls @ 20 mls/hr IV .Q24H [facility] Cefepime HCl 2 gm/ Sodium (Chloride) 50 mls @ 100 mls/hr IVPB Q12HR [facility] Last Admin: 11/28/16 13:23 Dose: 100 mls/hr Metronidazole (Flagyl) 500 mg PO TID [facility] Last Admin: 11/28/16 17:40 Dose: 500 mg Niacin (Niacin Tr) 250 mg PO DAILY [facility] Last Admin: 11/28/16 07:52 Dose: 250 mg Nitroglycerin (Nitrostat) 0.4 mg SUBLINGUAL Q5M PRN PRN Reason: Chest Pain Pantoprazole Sodium (Protonix) 40 mg PO AC-BRKFST [facility] Tamsulosin HCl (Flomax) 0.4 mg PO PC-SUPPER [facility] Valsartan (Diovan) 160 mg PO DAILY [facility] Last Admin: 11/28/16 07:52 Dose: 160 mg Objective - Vital Signs Vital signs: Vital Signs Temp 98.2 F 11/28/16 07:29 Pulse 74 11/28/16 07:29 Resp 16 11/28/16 07:29 BP 122/73 11/28/16 07:29 Pulse Ox 94 L 11/28/16 07:29 Intake & Output 11/27/16 11/28/16 11/28/16 18:59 06:59 18:59 Intake Total 2815 530 Output Total 400 120 330 Balance 2415 410 -330 Intake: IV 2025 330 0.9 330 Intake, IV Titration 200 Amount Levofloxacin 500Mg-D5w 100 Pmx 500 mg In Dextrose/ Water 1 100ml.bag @ 100 mls/hr IVPB Q24H [facility] Rx#: [id number] metroNIDAZOLE-NS PMX 500 100 mg In Saline 1 100ml.bag @ 100 mls/hr IVPB Q6HR [facility] Rx#:[id number] Blood Product 790 Ffp 24 Cp2d Unit 198 [id number] Ffp 24 Cp2d Unit 197 [id number] Output: Drainage 120 30 Right 120 30 Urine 200 300 Estimated Blood Loss 200 Other: Voiding Method Urinal # Voids 1 - Exam GENERAL: Patient is alert and oriented x3, no acute distress. Well developed, well nourished. HEENT: Pupils are round and equally reacting to light. EOMI. No scleral icterus. No conjunctival pallor. Normocephalic, atraumatic. No pharyngeal erythema. No thyromegaly. CARDIOVASCULAR: S1 and S2 present. No murmurs, rubs, or gallops. PULMONARY: Respiratory effort normal ,occasional expiratory wheezing with fine bibasilar crackles. ABDOMEN: Soft, distended, status post surgery, normoactive bowel sounds. No guarding, no rigidity MUSCULOSKELETAL: No joint swelling or deformity. EXTREMITIES: No cyanosis, clubbing, or pedal edema. NEUROLOGICAL: Gross neurological examination did not reveal any focal deficits. SKIN: No rashes. - Labs CBC & Chem 7: 11/28/16 06:39 11/28/16 06:39 Labs: Abnormal Lab Results - Last 24 Hours (Table) 11/27/16 11/28/16 11/28/16 Range/Units 15:11 06:39 06:39 WBC 13.2 H (3.8-10.6) k/uL Plt Count 144 L (150-450) k/uL Neutrophils # 12.1 H (1.3-7.7) k/uL Lymphocytes # 0.3 L (1.0-4.8) k/uL Chloride 108 H (98-107) mmol/L Carbon Dioxide 19 L (22-30) mmol/L Glucose 147 H (74-99) mg/dL Total Protein 5.9 L (6.3-8.2) g/dL Albumin 3.1 L (3.5-5.0) g/dL Crossmatch See Detail Microbiology - Last 24 Hours (Table) 11/26/16 18:50 Urine Culture - Final Urine,Voided 11/26/16 14:08 Blood Culture - Preliminary Blood No Growth after 24 hours Assessment and Plan Plan: #1 chest pain/epigastric abdominal pain, status post laparoscopic cholecystectomy for acute gangrenous cholecystitis #2 coronary artery disease: Continue with his home medications. 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 Plan: Continue on current medication regime , antibiotics, monitoring and symptomatic treatment. Persistent fevers, infectious disease consulted. Chest x-ray, urine micro, blood cultures ordered. Nebulized bronchodilators added to med regime. Aggressive pulmonary toileting; Reinstructed regarding incentive spirometer. Increase ambulation as tolerated. Surgical biopsy/ pathology pending. Protonix for GI prophylaxis. Thigh-high teds with compression sleeves for DVT prophylaxis, further anticoagulation as per surgery. Further recommendations to follow. The impression and plan of care has been dictated as directed. : I performed a H&P examination of this patient and discussed the same with the dictator. I agree with the dictator's note. Any additional findings/opinions/ etc. will be noted.
[2016-11-28] MEDS: TAMSULOSIN 0.4 MG CAP.ER.24H PO SCH (18:43)
[2016-11-28] MEDS ORDERED: SENNOSIDES-DOCUSATE SODIUM 1 EACH TAB PO PRN (19:53)
[2016-11-28] MEDS: SYMBICORT 160-4.5 MCG INHALER INHALATION SCH (20:02)
[2016-11-29] MEDS: guaiFENesin SYRUP 100MG/5ML 200 MG/10 ML CUP PO PRN ×2 (02:21→19:13)
[2016-11-29] MEDS: SODIUM CHLORIDE 0.9% 1,000 ML IV SCH ×2 (05:16→16:30)
[2016-11-29 07:02] LABS: Basophils % (A) 0 %; CH 33.2; CHCM 35.9; Eosinophils # (A) 0.1 k/uL (0-0.7); Eosinophils % (A) 1 %; HCT 40.5 % (39.0-53.0); HDW 3.13; HGB 13.8 gm/dL (13.0-17.5); Luc # (Auto) 0.21; Luc % (Auto) 2; Lymphocytes # (A) 0.8 k/uL (1.0-4.8); Lymphocytes % (A) 8 %; MCH 31.6 pg (25.0-35.0); Mean Platelet Volume 8.1; Monocytes # (A) 0.6 k/uL (0-1.0); Monocytes % (A) 6 %; Neutrophils # (A) 8.9 k/uL (1.3-7.7); Neutrophils % (A) 84 %; RBC 4.35 m/uL (4.30-5.90); RDW 13.9 % (11.5-15.5); WBC 10.7 k/uL (3.8-10.6); WBC (Perox) 10.11
[2016-11-29 07:11] LABS: ALT 37 U/L (21-72); AST 35 U/L (17-59); Alkaline Phosphatase 103 U/L (38-126); Anion Gap 11 mmol/L; Blood Urea Nitrogen 24 mg/dL (9-20); Carbon Dioxide 25 mmol/L (22-30); Chloride 106 mmol/L (98-107); Glucose 107 mg/dL (74-99); Non-African American GFR(MDRD) >60 (>60 ml/min/1.73 sqM); Potassium 3.8 mmol/L (3.5-5.1); Sodium 142 mmol/L (137-145); Total Bilirubin 0.8 mg/dL (0.2-1.3); Total Protein 6.2 g/dL (6.3-8.2)
[2016-11-29] MEDS: IPRATROPIUM-ALBUTEROL 3 ML NEB INHALATION SCH ×4 (08:54→21:31)
[2016-11-29] MEDS: SYMBICORT 160-4.5 MCG INHALER INHALATION SCH ×2 (08:54→21:31)
[2016-11-29] MEDS: CEFEPIME 2 GM in SODIUM CHLORIDE 0.9% 50 ML IVPB SCH ×2 (09:03→20:32)
[2016-11-29] MEDS: PANTOPRAZOLE 40 MG TABLET PO SCH (09:07)
[2016-11-29] MEDS: ALLOPURINOL 300 MG TAB PO SCH (09:07)
[2016-11-29] MEDS: NIACIN TR 250 MG CAPSULE.ER PO SCH (09:07)
[2016-11-29] MEDS: metroNIDAZOLE 500 MG TAB PO SCH ×3 (09:07→20:32)
[2016-11-29] MEDS: VALSARTAN 160 MG TAB PO SCH (09:07)
--- NOTE | 2016-11-29 10:26 | CONS ---
CONSULTATION DATE OF CONSULTATION: 11/28/2016. REASON FOR CONSULTATION: Persistent postop fevers and elevated white count. HISTORY OF PRESENT ILLNESS: The patient is a 81-year-old, male, who presented to the ER with chief complaints of right lower chest pain that woke him up about 2 in the morning on 11/25/2016. The pain was described to be sharp in nature with about 7 to 8 of 10 and no significant radiation. The patient felt nausea but no vomiting. Patient denies significant shortness of breath associated with it. No diarrhea. The patient who did not have any fever on presentation subsequently did have fever of 101.9 degrees Fahrenheit. The patient also had elevated white count. Normal white count on admission, though has some jump to 15.4 subsequently. The patient did have a chest x- ray that was reported negative for any pneumonia. He did have a ultrasound of the abdomen that was suggestive of small stones and gallbladder sludge with positive sonographic Rodriguez sign and pericholecystic fluid. Acute cholecystitis could not be totally excluded. The patient was evaluated by Surgery and was taken to the OR, and is status post laparoscopic cholecystectomy done on 11/27/2016. However, the patient was noticed to have a persistent fever with fever of 102 degrees Fahrenheit yesterday and elevated white count. The patient currently being treated with Levaquin and Flagyl. ID was consulted for further recommendation regarding antibiotic therapy. REVIEW OF SYSTEMS: CONSTITUTIONAL: Positive for weakness along with the fever. EYES: No complaint. ENT: No complaint. RESPIRATORY: Minimum cough with shortness of breath. CARDIOVASCULAR: No complaint. GENITOURINARY: No complaint. GASTROINTESTINAL: As per HPI. MUSCULOSKELETAL: No complaint. INTEGUMENTARY: No complaint. PSYCHOLOGICAL: No complaint. ENDOCRINE: No complaint. NEUROLOGIC: No complaints. PAST MEDICAL HISTORY: Significant for coronary artery disease, hypertension, hyperlipidemia, osteoarthritis, left leg cellulitis. PAST SURGICAL HISTORY: Adenoidectomy, heart catheterization, stent, tonsillectomy, left leg surgery. SOCIAL HISTORY: Remote history of smoking. No drinking or drug use. FAMILY HISTORY: Father history of brain cancer. Mother in a motor vehicle accident. ALLERGIES: PENICILLIN with a rash and SULFA ANTIBIOTIC. No history of anaphylaxis. MEDICATIONS: Include the patient is currently on [place], DuoNeb, Zyloprim, Lipitor, Symbicort, Levaquin, Flagyl, Niacin, Nitrostat, Protonix, Senokot, Flomax. EXAMINATION: Blood pressure 132/73 with a pulse of 75, temperature 98.4. He is 92% on room air. General description is an elderly male lying in bed, in no distress. No tachypnea or accessory muscle of respiration use. HEENT: Examination shows no pallor or scleral icterus. Oral mucosa slightly dry. NECK: Trachea central. No thyromegaly. LUNGS: Unlabored breathing. Decreased breath sounds at the base. No wheeze. HEART: S1, S2. Regular rate and rhythm. ABDOMEN: Soft. Mild tenderness right upper quadrant area. . EXTREMITIES: No edema feet. SKIN: Examination no rash or mass palpable. NEUROLOGICAL: Patient is awake, alert, oriented x3. Mood and affect normal. LAB: Hemoglobin 13.1, hematocrit 13.2, with a BUN of 16, creatinine 0.90. Electrolytes have been normal. Urine has been negative. DIAGNOSTIC IMPRESSION: 1. Patient with sepsis in patient who did have fever and elevated white count secondary to acute gangrenous cholecystitis. Currently with persistent fever despite being on Levaquin and Flagyl. 2. Patient did have a PENICILLIN and SULFA ALLERGY that will limit the number of antibiotics that can be safely used. PLAN: 1. Discontinue Levaquin. 2. Start IV cefepime 2 g q.12 which can be safely used in patient who did have PENICILLIN ALLERGY with a rash and no history of anaphylaxis and continue the Flagyl. 3. Repeat blood culture has been ordered, which we will follow. 4. Depending upon the clinical response and cultures, will determine his discharge antibiotic. Thank you for this consultation. Will follow this patient along with you. MMODL / IJN: [id number] /
[2016-11-29 14:58] VITALS: RESP 16
[2016-11-29] MEDS ORDERED: BISACODYL 10 MG SUPP RECTAL STA (16:15)
[2016-11-29] MEDS: TAMSULOSIN 0.4 MG CAP.ER.24H PO SCH (16:27)
--- NOTE | 2016-11-29 16:35 | PN ---
PROGRESS NOTE DATE OF SERVICE: 11/29/2016. REASON: Followup acute gangrenous cholecystitis with a fever. INTERVAL HISTORY: The patient is afebrile with no fever in the last 24-hours. The patient already is feeling better. Breathing comfortably. Did have minimal cough. Abdominal pain has improved. No nausea, vomiting, or diarrhea. EXAMINATION: Blood pressure 147/82 with pulse 75, temperature of 98.2. He is 93% on room air. General description is an elderly male up in the bed in no distress. RESPIRATORY SYSTEM: Unlabored breathing. Some decreased breath sounds in the bases. HEART: S1, S2. Regular rate. ABDOMEN: Soft, no tenderness. LAB: Hemoglobin 13.1, white count 10.7, BUN of 24, creatinine 0.86. Follow up blood and urine culture so far negative. DIAGNOSTIC IMPRESSION: The patient admitted to the hospital with sepsis, post acute gangrenous cholecystitis status post laparoscopic cholecystectomy. The patient's fever has resolved and white count has normalized. The patient did have a PENICILLIN AND SULFA ALLERGY. The Surgical Service requesting for discharge antibiotic. The patient will be given Cipro and Flagyl for 10 days in outpatient setting with close outpatient follow up. Script sent to pharmacy. HEMANT / IJN: [id number] /
[2016-11-29] MEDS: ATORVASTATIN 10 MG TAB PO SCH (20:32)
--- NOTE | 2016-11-29 21:14 | P.PN ---
Subjective Principal diagnosis: History of gangrenous cholecystitis The patient is status post cholecystectomy for gangrenous cholecystitis. He has a RODRIGUEZ drain. He's tolerating diet. His pain is moderately improved. Objective - Vital Signs Vital signs: Vital Signs Temp 98.3 F 11/29/16 19:34 Pulse 67 11/29/16 19:34 Resp 16 11/29/16 19:34 BP 148/77 11/29/16 19:34 Pulse Ox 95 11/29/16 19:34 Intake & Output 11/29/16 11/29/16 11/30/16 06:59 18:59 06:59 Intake Total 1200 Output Total 1250 20 Balance -50 -20 Intake: Oral 1200 Output: Drainage 20 Right 20 Urine 1250 Other: # Bowel Movements 1 - Exam GENERAL: Well developed and in no acute distress. Pleasant. HEENT: No sclera icterus. Extraocular movements grossly intact. Moist buccal mucosa. Head is atraumatic, normocephalic. Hears conversational speech. No nasal drainage. CHEST: Non-labored respirations and equal bilateral excursions. CARDIOVASCULAR: Palpable 2+ radial pulses. ABDOMEN: Soft, nontender. Nondistended. RODRIGUEZ draining serosanguineous. NEUROLOGIC: No focal or lateralizing signs. PSYCH: Appropriate affect. Alert and oriented to person, place and time. - Labs CBC & Chem 7: 11/29/16 06:20 11/29/16 06:20 Labs: Abnormal Lab Results - Last 24 Hours (Table) 11/29/16 11/29/16 Range/Units 06:20 06:20 WBC 10.7 H (3.8-10.6) k/uL Neutrophils # 8.9 H (1.3-7.7) k/uL Lymphocytes # 0.8 L (1.0-4.8) k/uL BUN 24 H (9-20) mg/dL Glucose 107 H (74-99) mg/dL Total Protein 6.2 L (6.3-8.2) g/dL Albumin 3.4 L (3.5-5.0) g/dL Microbiology - Last 24 Hours (Table) 11/26/16 14:08 Blood Culture - Preliminary Blood No Growth after 72 hours 11/28/16 10:24 Blood Culture - Preliminary Blood No Growth after 24 hours 11/28/16 10:35 Blood Culture - Preliminary Blood No Growth after 24 hours 11/28/16 12:44 Urine Culture - Preliminary Urine,Catheterized Assessment and Plan (1) Acute gangrenous cholecystitis Status: Acute (2) Cholelithiasis Status: Acute Plan: 1. Patient reports feeling very well and requests to go home. 2. Continue RODRIGUEZ drain which can be removed in the office. 3. Patient is clear from a surgical standpoint when medically cleared. 4. Antibiotic management per infectious disease.
[2016-11-30 07:18] LABS: Basophils % (A) 0 %; CH 33.1; CHCM 35.7; Eosinophils # (A) 0.1 k/uL (0-0.7); Eosinophils % (A) 2 %; HCT 39.1 % (39.0-53.0); HDW 3.17; HGB 13.4 gm/dL (13.0-17.5); Luc # (Auto) 0.19; Luc % (Auto) 3; Lymphocytes # (A) 0.8 k/uL (1.0-4.8); Lymphocytes % (A) 11 %; MCH 31.9 pg (25.0-35.0); MCHC 34.3 g/dL (31.0-37.0); MCV 93.2 fL (80.0-100.0); Mean Platelet Volume 7.7; Monocytes # (A) 0.6 k/uL (0-1.0); Monocytes % (A) 9 %; Neutrophils % (A) 75 %; RBC 4.19 m/uL (4.30-5.90); RDW 14.2 % (11.5-15.5); WBC 6.7 k/uL (3.8-10.6); WBC (Perox) 6.06
[2016-11-30 07:26] VITALS: BP 139/77; TEMP 97.4
[2016-11-30 07:38] LABS: ALT 37 U/L (21-72); AST 24 U/L (17-59); Alkaline Phosphatase 78 U/L (38-126); Anion Gap 10 mmol/L; Blood Urea Nitrogen 19 mg/dL (9-20); Calcium 8.9 mg/dL (8.4-10.2); Carbon Dioxide 24 mmol/L (22-30); Chloride 107 mmol/L (98-107); Glucose 99 mg/dL (74-99); Non-African American GFR(MDRD) >60 (>60 ml/min/1.73 sqM); Potassium 3.9 mmol/L (3.5-5.1); Sodium 141 mmol/L (137-145); Total Bilirubin 0.5 mg/dL (0.2-1.3); Total Protein 5.8 g/dL (6.3-8.2)
[2016-11-30] MEDS: IPRATROPIUM-ALBUTEROL 3 ML NEB INHALATION SCH ×2 (08:37→11:26)
[2016-11-30] MEDS: SYMBICORT 160-4.5 MCG INHALER INHALATION SCH (08:37)
[2016-11-30 08:47] VITALS: PULSE 68
[2016-11-30] MEDS: CEFEPIME 2 GM in SODIUM CHLORIDE 0.9% 50 ML IVPB SCH (08:49)
[2016-11-30] MEDS: NIACIN TR 250 MG CAPSULE.ER PO SCH (08:52)
[2016-11-30] MEDS: ALLOPURINOL 300 MG TAB PO SCH (08:53)
[2016-11-30] MEDS: PANTOPRAZOLE 40 MG TABLET PO SCH (08:53)
[2016-11-30] MEDS: metroNIDAZOLE 500 MG TAB PO SCH (08:53)
[2016-11-30] MEDS: VALSARTAN 160 MG TAB PO SCH (08:53)
--- NOTE | 2016-11-30 10:58 | P.PN ---
Subjective Principal diagnosis: History of gangrenous cholecystitis The patient is status post cholecystectomy for gangrenous cholecystitis. He tolerated diet. He had a bowel movement. Antibiotics with IV cefepime has continued. Patient denies any abdominal pain. Objective - Vital Signs Vital signs: Vital Signs Temp 97.4 F L 11/30/16 07:00 Pulse 68 11/30/16 08:46 Resp 16 11/30/16 07:00 BP 139/77 11/30/16 07:00 Pulse Ox 94 L 11/30/16 07:00 Intake & Output 11/29/16 11/30/16 11/30/16 18:59 06:59 18:59 Intake Total 900 240 Output Total 20 600 5 Balance -20 300 235 Intake: Intake, IV Titration 100 Amount Cefepime 2 gm In Sodium 100 Chloride 0.9% 50 ml @ 100 mls/hr IVPB Q12HR [facility] Rx #:[id number] Oral 800 240 Output: Drainage 20 5 Right 20 5 Urine 600 Other: # Voids 1 # Bowel Movements 1 - Exam GENERAL: Well developed and in no acute distress. Pleasant. HEENT: No sclera icterus. Extraocular movements grossly intact. Moist buccal mucosa. Head is atraumatic, normocephalic. Hears conversational speech. No nasal drainage. CHEST: Non-labored respirations and equal bilateral excursions. CARDIOVASCULAR: Palpable 2+ radial pulses. ABDOMEN: Soft, nontender. Nondistended. RODRIGUEZ draining serosanguineous. NEUROLOGIC: No focal or lateralizing signs. PSYCH: Appropriate affect. Alert and oriented to person, place and time. - Labs CBC & Chem 7: 11/30/16 06:41 11/30/16 06:41 Labs: Abnormal Lab Results - Last 24 Hours (Table) 11/30/16 11/30/16 Range/Units 06:41 06:41 RBC 4.19 L (4.30-5.90) m/uL Lymphocytes # 0.8 L (1.0-4.8) k/uL Total Protein 5.8 L (6.3-8.2) g/dL Albumin 3.2 L (3.5-5.0) g/dL Microbiology - Last 24 Hours (Table) 11/28/16 12:44 Urine Culture - Final Urine,Catheterized 11/26/16 14:08 Blood Culture - Preliminary Blood No Growth after 72 hours 11/28/16 10:24 Blood Culture - Preliminary Blood No Growth after 24 hours 11/28/16 10:35 Blood Culture - Preliminary Blood No Growth after 24 hours Assessment and Plan (1) Acute gangrenous cholecystitis Status: Acute (2) Cholelithiasis Status: Acute Plan: 1. Patient is cleared from a surgical standpoint for discharge. He did have multiple bowel movements. 2. Follow-up in the office of Dr. Bernardo this week for removal of RODRIGUEZ drain.
--- NOTE | 2016-11-30 13:00 | PN ---
PROGRESS NOTE DATE OF SERVICE: 11/29/2016 This is a progress note. This 81-year-old gentleman who was admitted after laparoscopic cholecystectomy is being closely monitored. The patient is keen on going home. The patient is still on IV antibiotics at this time. PAST MEDICAL HISTORY: Reviewed. PHYSICAL EXAMINATION: Alert and oriented times three. Pulse 64. Blood pressure 130/65. Respiratory rate 16. Temperature 98.4, pulse ox 95% room air. HEENT: Conjunctivae normal. Neck no jugular venous distention. Cardiovascular S1, S2 muffled. Respiratory: Breath sounds diminished in the bases. A few scattered rhonchi and crackles. Abdomen: Soft. Minimal diffuse discomfort. No guarding or rigidity. LEGS: No edema. No swelling. Central nervous system: No focal deficits. LABS: WBC 10.7. ASSESSMENT: 1. Status post laparoscopic cholecystectomy for acute gangrenous cholecystitis. 2. Coronary artery disease. 3. Hypertension. 4. Degenerative joint disease. 5. Chronic kidney disease stage 2. 6. Continued fever, improved. RECOMMENDATIONS AND DISCUSSION: Continue current management and symptomatic treatment. Cultures are negative. Continue IV antibiotics. Closely follow with Infectious Disease. Further recommendations to follow. MMODL / IJN: [id number] /
--- NOTE | 2016-11-30 16:36 | PN ---
PROGRESS NOTE DATE OF SERVICE: 11/30/2016 REASON FOR FOLLOW UP: Acute gangrenous cholecystitis. INTERVAL HISTORY: The patient is afebrile. He is feeling better. Breathing comfortably with minimal cough. No chest pain. Abdominal pain has improved. Has been tolerating a regular diet. No nausea, vomiting or any diarrhea. EXAMINATION: Blood pressure is 139/77 with a pulse of 51, temperature 97.4. He is 94% on room air. GENERAL DESCRIPTION: Elderly male up in the bed in no distress. RESPIRATORY SYSTEM: Unlabored breathing. . No wheeze. HEART: S1/S2 regular rate. ABDOMEN: Soft, no tenderness. LAB: Hemoglobin 13.4, white count 6.7 with the BUN of 19 and creatinine 0.88. Blood culture has been negative. DIAGNOSTIC IMPRESSION: Patient with acute gangrenous cholecystitis admitted to the hospital with sepsis. The patient is status post laparoscopic cholecystectomy. All cultures negative. White count normalized on cefepime and Flagyl. Plan to finish therapy with cefepime and Flagyl for another 10 days. Scripts were written for the patient. MMODL / IJN: [id number] /
--- NOTE | 2016-11-30 17:15 | P.DS ---
Providers Date of admission: 11/26/16 14:22 Attending physician: Brenda Salgado Consults: 11/25/16 09:29 Consult Physician Urgent Consulting Provider: Carleen Almaraz Consult Reason/Comments: Chest pain Do you want consulting provider notified?: Yes 11/26/16 13:42 Consult Physician Routine Consulting Provider: Shanelle Ayon Consult Reason/Comments: abnormal ultrasound/acute choleycystitis Do you want consulting provider notified?: Yes 11/28/16 10:51 Consult Physician Routine Consulting Provider: Cooper Alba Consult Reason/Comments: persist. fevers, Gang. GB Do you want consulting provider notified?: Yes Primary care physician: Froy Chapman Hospital Course: This 81-year-old gentleman being followed by Dr. Chapman in the outpatient setting was admitted with the gangrenous cholecystitis acute. Patient underwent laparoscopic cholecystectomy. Patient is running fever. Treated with cefipime. Improved significantly. Cultures were negative. Patient was seen by surgery and infectious diseases closely during the hospitalization. The overall patient Meding significant improvement. On exam vitals stable. S1-S2 normal. Breath sounds equal. Abdomen soft status post surgery. Patient be discharged in a stable pressure the guarded prognosis with further plans to follow up with the infection disease surgery and also primary physician in outpatient setting. Total time taken 35 minutes. The patient understands and agrees. Assessment 1. Status post laparoscopic cholecystectomy for acute gangrenous cholecystitis. 2. CAD 3. Hypertension 4. 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 Continued fever improved Patient Condition at Discharge: Stable Plan - Discharge Summary New Discharge Prescriptions: New Albuterol Inhaler [Ventolin Hfa Inhaler] 2 puff INHALATION Q6HR #1 inhaler Budesonide-Formot 160-4.5 Mcg [Symbicort 160-4.5 Mcg Inhaler] 2 puff INHALATION RT-BID #1 puff guaiFENesin SYRUP 100MG/5ML [Robitussin] 200 mg PO Q6H PRN #90 ml PRN Reason: Cough HYDROcodone/APAP 7.5-325MG [[place] 7.5-325] 1 each PO Q6H PRN #20 tab PRN Reason: Pain Tamsulosin [Flomax] 0.4 mg PO PC-SUPPER #30 cap Ciprofloxacin HCl [Cipro] 500 mg PO Q12HR #20 tablet metroNIDAZOLE [Flagyl] 500 mg PO TID #30 tab Continue Aspirin 325 mg PO HS Simvastatin [Zocor] 20 mg PO HS Allopurinol [Zyloprim] 300 mg PO DAILY Ubidecarenone [Co Q-10] 200 mg PO DAILY Valsartan [Diovan] 160 mg PO DAILY #30 tab Magnesium 200 mg PO DAILY Cholecalciferol [Vitamin D3] 1,000 unit PO DAILY Ascorbic Acid [Vitamin C] 1,000 mg PO BID Niacin [Slo-Niacin] 250 mg PO DAILY Green Tea [place] Extract [Green Tea Extract] 150 mg PO DAILY Red Yeast Rice 600 mg PO DAILY Thiamine [Vitamin B-1] 100 mg PO DAILY Folic Acid 1 mg PO DAILY Discharge Medication List Allopurinol [Zyloprim] 300 mg PO DAILY 10/03/14 [History] Aspirin 325 mg PO HS 10/03/14 [History] Simvastatin [Zocor] 20 mg PO HS 10/03/14 [History] Ubidecarenone [Co Q-10] 200 mg PO DAILY 04/02/15 [History] Valsartan [Diovan] 160 mg PO DAILY #30 tab 04/04/15 [Rx] Ascorbic Acid [Vitamin C] 1,000 mg PO BID 01/31/16 [History] Cholecalciferol [Vitamin D3] 1,000 unit PO DAILY 01/31/16 [History] Magnesium 200 mg PO DAILY 01/31/16 [History] Niacin [Slo-Niacin] 250 mg PO DAILY 02/05/16 [History] Folic Acid 1 mg PO DAILY 11/25/16 [History] Green Tea [place] Extract [Green Tea Extract] 150 mg PO DAILY 11/25/16 [History] Red Yeast Rice 600 mg PO DAILY 11/25/16 [History] Thiamine [Vitamin B-1] 100 mg PO DAILY 11/25/16 [History] Albuterol Inhaler [Ventolin Hfa Inhaler] 2 puff INHALATION Q6HR #1 inhaler 11/30 [Rx] Budesonide-Formot 160-4.5 Mcg [Symbicort 160-4.5 Mcg Inhaler] 2 puff INHALATION RT-BID #1 puff 11/30/16 [Rx] Ciprofloxacin HCl [Cipro] 500 mg PO Q12HR #20 tablet 11/30/16 [Rx] HYDROcodone/APAP 7.5-325MG [[place] 7.5-325] 1 each PO Q6H PRN #20 tab 11/30/16 [ Rx] Tamsulosin [Flomax] 0.4 mg PO PC-SUPPER #30 cap 11/30/16 [Rx] guaiFENesin SYRUP 100MG/5ML [Robitussin] 200 mg PO Q6H PRN #90 ml 11/30/16 [Rx] metroNIDAZOLE [Flagyl] 500 mg PO TID #30 tab 11/30/16 [Rx] Follow up Appointment(s)/Referral(s): Angeles Bernardo MD [STAFF PHYSICIAN] - 12/03/16 Merritt King MD [STAFF PHYSICIAN] - As Needed Froy Chapman MD [Primary Care Provider] - 3 Days Cooper Alba MD [STAFF PHYSICIAN] - 1 Week Ambulatory/Diagnostic Orders: Complete Blood Count w/diff [LAB.AMB] Location: Determined By Patient Patient Instructions/Handouts: [place] Drain Care (DC), Laparoscopic Cholecystectomy (DC) Activity/Diet/Wound Care/Special Instructions: FInal BC results to PCP Diet: lowfat Activity: limited TIll F/U Discharge Disposition: HOME SELF-CARE
--- NOTE | 2016-12-08 12:33 | CDI ---
In responding to this query, please exercise your independent professional judgment. The [facility] Coding Staff and Clinical Documentation Specialists appreciate your assistance in clarifying documentation, maintaining compliance with coding guidelines, accurately documenting patients condition and capturing severity of illness. The fact that a question is asked does not imply that any particular answer is desired or expected. Communication forms are a method of clarifying documentation and are not made part of the Legal Health Record. Thank you in advance for your clarification. Last Revision, January 2015 Mercedes Guzmán [address] [place] [address] Documentation Clarification Form Date: 12/08/2016 12:15:00 PM From: Andra Shyanne Phone: Admit Date: 11/26/2016 2:22:00 PM Patient Name: Semaj Baker Visit Number: [id number] Discharge Date: Dr. Fiordaliza Montalvo Sepsis was documented in Doctor Alba's consult note, 11/29 & 11/30 progress notes but not documented in your discharge summary. Patient history/risk factors Patient was admitted with acute gangrenous cholecystitis. Lab findings: WBC 7.3 on admit and 15.4 on 11/27, lactic acid not done, Vital Signs: T. 97.0 on admission and up to 100.1 same day, then up to 101.9 on 11.26; P. 49 on admit, R. 17 on admit, BP 158/66 on admit Treatment: IV Cefepime, IV Levofloxacin, IV Metronidazole Consults: Dr. Alba's consult note diagnositc impression: Patient with sepsis in patient who did have fever and elevated white count secondary to acute gangrenous cholecystitis. Currently with persistent fever despite being on Levaquin and Flagyl. In your professional opinion, can you please clarify if the patient had Sepsis and if so was it POA? Other Unable to determine Please document in your discharge summary in order to capture severity of illness and risk of mortality. Include clinical findings that support your diagnosis. FYI: Press F11 to launch patient chart. If you have a question about this query, please contact [facility] [employer] [facility], at [phone] between 8am and 5pm. ARUNA
== END 2016-11-30 15:32 | disposition home or self-care (01) | DRG 854 ==
LOC: EC 06:38 → 3OBS 09:29 → OBSVTOIN 11-26 14:22 → 3SUR 11-26 16:30
PROVIDERS: ADMIT Internal Medicine; ATTEND Internal Medicine
PROC: 0FT44ZZ Resection of Gallbladder, Percutaneous Endoscopic Approach (ICD-10-PCS; principal; 2016-11-27 07:30)
DX: A41.9 Sepsis, unspecified organism (principal); K80.00 Calculus of gallbladder with acute cholecystitis without obstruction; L03.116 Cellulitis of left lower limb; I25.110 Atherosclerotic heart disease of native coronary artery with unstable angina pectoris; K76.0 Fatty (change of) liver, not elsewhere classified; I12.9 Hypertensive chronic kidney disease with stage 1 through stage 4 chronic kidney disease, or unspecified chronic kidney disease; E56.1 Deficiency of vitamin K; E78.5 Hyperlipidemia, unspecified; H91.91 Unspecified hearing loss, right ear; I25.2 Old myocardial infarction; K21.9 Gastro-esophageal reflux disease without esophagitis; K82.8 Other specified diseases of gallbladder; M10.9 Gout, unspecified; M19.90 Unspecified osteoarthritis, unspecified site; N18.2 Chronic kidney disease, stage 2 (mild); M48.06 Spinal stenosis, lumbar region; R79.1 Abnormal coagulation profile; Z79.82 Long term (current) use of aspirin; Z79.899 Other long term (current) drug therapy; Z87.891 Personal history of nicotine dependence; Z95.1 Presence of aortocoronary bypass graft; Z95.5 Presence of coronary angioplasty implant and graft; Z88.2 Allergy status to sulfonamides; Z88.0 Allergy status to penicillin
CPT/HCPCS: 36415; 71010; 71020; 76700; 80053; 80061; 81001; 81003; 82550; 82553; 83735; 83880; 84484; 85025; 85379; 85610; 85730; 86850; 86900; 86901; 86920; 87040; 87086; 88304; 93005; 93306; 94640; 94760; 96374; 99285

== ENCOUNTER 2024-06-22 20:48 | Emergency (ER) | payer MEDICARE ==
[2024-06-22 20:57] VITALS: TEMP 98.5
[2024-06-22] MEDS ORDERED: NITROGLYCERIN SL TABS 0.4 MG TAB SUBLINGUAL PRN (20:57)
[2024-06-22] MEDS: SODIUM CHLORIDE 0.9% 1,000 ML IV ONE ×2 (21:00→21:15)
[2024-06-22] MEDS: HEPARIN SOD,PORK IN 0.45% NACL 25,000 UNIT in 0.45% NACL 1 250ML.BAG IV SCH (21:00)
[2024-06-22] MEDS ORDERED: NALOXONE 0.4 MG/ML 1 ML VIAL IV PRN (21:05)
[2024-06-22 21:08] LABS: Glucose,Whole Blood 138 mg/dL (70-110)
--- NOTE | 2024-06-22 21:17 | XR ---
EXAMINATION TYPE: XR chest 1V portable DATE OF EXAM: 06/22/2024 COMPARISON: Chest x-ray November 28, 2016 CLINICAL INDICATION: Male, 88 years old with history of chest pain; TECHNIQUE: Single frontal view of the chest is obtained. FINDINGS: There is bibasilar increased opacity . Reticular increased markings bilaterally are presen t. The cardiac silhouette size is mildly enlarged. The osseous structures are intact. IMPRESSION: Mild cardiomegaly with suspected mild central vascular congestion. Correlate clinically. In addition there is bibasilar acute infiltrate and/or atelectasis noted. [facility], , 06/22/2024 9:15 PM
[2024-06-22 21:25] LABS: Basophils # (A) 0.1 k/uL (0-0.2); Basophils % (A) 0 %; Eosinophils % (A) 0 %; HCT 38.7 % (39.0-53.0); Lymphocytes # (A) 0.8 k/uL (1.0-4.8); Lymphocytes % (A) 7 %; MCH 30.4 pg (25.0-35.0); MCHC 33.6 g/dL (31.0-37.0); MCV 90.2 fL (80.0-100.0); Mean Platelet Volume 8.1; Monocytes # (A) 0.9 k/uL (0-1.0); Monocytes % (A) 7 %; Neutrophils # (A) 10.1 k/uL (1.3-7.7); Neutrophils % (A) 84 %; Platelet Count 137 k/uL (150-450); RBC 4.29 m/uL (4.30-5.90); RDW 13.2 % (11.5-15.5)
[2024-06-22] MEDS: NOREPINEPHRINE 4 MG in SODIUM CHLORIDE 0.9% 250 ML IV ONE (21:30)
[2024-06-22] MEDS: LIDOCAINE 1% INJ 10MG/ML (20 ML MDV) SQ ONE (21:35)
[2024-06-22 21:37] LABS: ALT 21 U/L (4-49); AST 33 U/L (17-59); African American GFR (CKD) 74 (>60 ml/min/1.73 sqM); Alkaline Phosphatase 71 U/L (38-126); Anion Gap 9 mmol/L; Blood Urea Nitrogen 21 mg/dL (9-20); Calcium 7.2 mg/dL (8.4-10.2); Carbon Dioxide 24 mmol/L (22-30); Chloride 105 mmol/L (98-107); Glucose 160 mg/dL (74-99); Non-African American GFR(CKD) 64 (>60 ml/min/1.73 sqM); Potassium 4.4 mmol/L (3.5-5.1); Sodium 138 mmol/L (137-145); Total Protein 5.8 g/dL (6.3-8.2)
[2024-06-22] MEDS: fentaNYL (PF) 50 MCG/ML 2 ML AMP IVP ONE (21:40)
[2024-06-22] MEDS: HEPARIN SODIUM 1,000 UN/ML (10ML VL) IVP ONE (21:42)
[2024-06-22 21:51] LABS: Total Bilirubin 1.2 mg/dL (0.2-1.3)
[2024-06-22 22:06] LABS: INR 1.4 (<1.2); Prothrombin Time 14.6 sec (10.0-12.5)
[2024-06-22 22:15] LABS: Partial Thromboplastin Time >200.0 sec (22.0-30.0)
[2024-06-22] MEDS ORDERED: ALTEPLASE 10 MG in SODIUM CHLORIDE 0.9% 90 ML IA ONE (22:30)
[2024-06-22] MEDS: IOPAMIDOL-370 100ML BTL INJ ONE (22:38)
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
--- NOTE | 2024-06-22 22:45 | P.PCN ---
Date of Procedure: 06/22/24 Operative Findings: CARDIAC CATHETERIZATION PERFORMING PHYSICIAN: Merritt King MD, RPVI PROCEDURE PERFORMED: 1. Selective right and left coronary angiogram 2. Ultrasound-guided access of the right radial artery INDICATION: Acute inferior ST elevation myocardial infarction COMPLICATION: None APPROACH: Right radial artery LEVEL OF SEDATION: Moderate with a sedation length of 30 minutes PROCEDURE DESCRIPTION: After obtaining an informed consent, the patient was brought to cardiac public works laborer. Local anesthesia was performed using lidocaine subcutaneously. The right radial artery was cannulated using Seldinger technique, under ultrasound guidance, the guidewire passed easily, following that we advanced a 5-[place] sheath dilator assembly, the wire and dilator were removed and sheath was flushed. Following that, 2 mg of verapamil Selective right and left coronary angiogram using a 5-[place] JR4 and JL 3.5 catheters. The procedure was completed there was no complication. SELECTIVE CORONARY ANGIOGRAM: The right coronary artery: Large caliber vessel and a dominant vessel with previous stents identified in the RCA and the RCA appeared to be occluded in the mid to distal portion with a large thrombus burden Left main: Hazy with no evidence of high-grade stenosis identified. The left circumflex: Large caliber vessel and codominant vessel. The LCx distally gives a PDA branch appears to be occluded. The left circumflex gives rise into the first and second obtuse marginal branches and both appear to be diseased The left anterior descending artery: The proximal LAD has a tight lesion appears to be in the range of 70 to 80%. The mid LAD has another tight lesion appears to be in the range of 70% CONCLUSION: Occluded RCA and occluded PDA branch of the LCx and severe disease involving the LAD in the proximal and midportion
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
[2024-06-23 01:33] VITALS: BP 82/60; PULSE 86; RESP 16
== END 2024-06-22 21:10 | disposition other institution (70) ==
LOC: EC 20:48 → SUPCPDRO 20:48 → EC 21:10
DX: I21.19 ST elevation (STEMI) myocardial infarction involving other coronary artery of inferior wall (principal); I25.10 Atherosclerotic heart disease of native coronary artery without angina pectoris; Z88.0 Allergy status to penicillin; Z88.2 Allergy status to sulfonamides
CPT/HCPCS: 36415; 93005; 80053; 84484; 85025; 85610; 85730; 71045; 99285; 96374; 96375; C1894 ×2; C1769 ×2; J2003; J3010; J1644 ×2; Q9967; 92950; 93454